=== PATIENT | female | born 1955 | race Caucasian/White ===

== ENCOUNTER 2018-09-17 09:57 | Inpatient (IN) | payer OTHER ==
[~2018-09-17] VITALS: Ht 162.6 cm; Wt 96.8 kg
--- NOTE | ~2018-09-17 | CON ---
[address] [address] CONSULTATION Name: BETH ALVARENGA Room: [address]#: [id number] Admission: 09/17/18 Attend Phys: Sylwia Carrillo Discharge: 09/18/18 Date of : 57 Report #: [id number] THIS REPORT FOR: //name// CC: Sloan Marshall DATE OF SERVICE: 09/17/2018 HISTORY OF PRESENT ILLNESS: The patient is a 62-year-old female who presents with vertigo. The patient states that the vertigo began this morning when she woke up. She has never had vertigo before and the room is spinning and she has to sit with her eyes closed for it to go away. The vertigo occurs whether she turns to her right or left. With this, she has also had nausea and vomiting. The patient states that she does have a history of ear surgery. This ear surgery was performed, two of the ear surgeries, by Dr. Lang Peralta, who has retired. PAST MEDICAL HISTORY: Hypertension, diabetes, interstitial cystitis. PAST SURGICAL HISTORY: Three ear surgeries. MEDICATIONS: Metformin 500 mg daily, enalapril 2.5 mg b.i.d., Elmiron 100 mg t.i.d., vitamin D 1000 units daily. ALLERGIES: MORPHINE. VITAL SIGNS: Temperature 36.3, pulse rate 72, respiratory rate 13, blood pressure 108/59, bedside pulse oximetry 97% on room air. LABORATORY DATA: Hematology: White blood cell count 11.3, hemoglobin 15.3, hematocrit 43.9, MCV 89.3, platelet count 335,000. Urinalysis: 2+ protein, 2+ blood. Chemistry: Sodium 139, potassium 3.8, chloride 101, carbon dioxide 26, BUN 16, creatinine 1, glucose 121. Liver functions normal. Drug screen not done. IMAGING: CT scan of the head shows atrophy. NEUROLOGIC: Cranial nerves 2-12 are grossly intact. The patient has bilateral horizontal nystagmus. Motor exam is symmetrical in all 4 extremities. Tone and bulk normal. Reflexes plantar. Coordination reveals intact [id number]. Gait was not tested. IMPRESSION: This patient has vertigo. This is most likely secondary to peripheral vestibular dysfunction. I will ask physical therapy to perform an Philippe maneuver tomorrow morning. After the Philippe maneuver, the patient should not tilt her head forward and should sleep in a more [place] [address] CONSULTATION Name: BETH ALVARENGA Room: [address]#: [id number] Admission: 09/17/18 Attend Phys: Sylwia Carrillo Discharge: 09/18/18 Date of : 57 Report #: [id number] does not help or the vertigo is not resolved by morning, the patient may need outpatient vestibular testing. I thank you for your kind referral of the patient. We will continue to follow her with you. By: 1837 [id number] Conklin DO /rosalva
[2018-09-17 10:06] VITALS: BP 134/90
[2018-09-17] MEDS ORDERED: METFORMIN HCL500 MG PO (10:12)
[2018-09-17 10:14] LABS: URINE BILIRUBIN NEGATIVE (Negative); URINE BLOOD 2+ (Negative); URINE CLARITY CLEAR; URINE COLOR YELLOW; URINE GLUCOSE-RANDOM NEGATIVE (Negative); URINE KETONES NEGATIVE (Negative); URINE LEUKOCYTES-REFLEX NEGATIVE (Negative); URINE NITRITE-REFLEX NEGATIVE (Negative); URINE PROTEIN 2+ (Negative); URINE SPECIFIC GRAVITY 1.025 (1.005-1.030); URINE UROBILINOGEN 0.2 E.U./dl (0.2-1.0)
[2018-09-17] MEDS ORDERED: VASOTEC 2.5MG2.5 MG PO (10:19)
[2018-09-17 10:21] LABS: BACTERIA-REFLEX 1-9 Few /HPF (None Seen); COARSE GRANULAR CASTS 0-3 Few /LPF (None Seen); HYALINE CASTS 0-3 Few /LPF (None Seen); MUCUS 0-3 Light strn/LPF (None Seen); SQUAMOUS 4-10 Moderate /LPF (0-3); URINE RBC 3-10 Few /HPF (0-2); URINE WBC-REFLEX 0-5 Rare /HPF (0-5)
[2018-09-17 10:22] LABS: CRYSTALS None Seen /LPF (None Seen)
[2018-09-17 10:30] LABS: ABSOLUTE BASOPHILS 0.1 thou/uL (0.0-0.2); ABSOLUTE EOSINOPHILS 0.1 thou/uL (0.0-0.7); ABSOLUTE LYMPHOCYTES 3.4 thou/uL (0.8-5.3); ABSOLUTE MONOCYTES 0.7 thou/uL (0.0-1.2); BASOPHILS 0.8 %; HEMATOCRIT 43.9 % (37.0-47.0); HEMOGLOBIN 15.3 gm/dL (12.0-15.0); LYMPHOCYTES 30.4 %; MCH 31.1 pg (26.0-34.0); MCHC 34.8 g/dL (28.0-37.0); MCV 89.3 fL (80.0-100.0); MONOCYTES 6.1 %; MPV 8.8 fl. (7.2-11.1); NUCLEATED RBCS 0 /100WBC; PLATELET COUNT* 335 thou/uL (150-400); POLYS 61.7 %; RBC 4.92 mil/uL (4.20-5.00); RDW-CV 13.7 % (10.5-14.5); WBC 11.3 thou/uL (4.0-11.0)
[2018-09-17 10:54] LABS: ANION GAP 12 mmol/L (7-16); BUN 16 mg/dL (7-18); CALCIUM 9.4 mg/dL (8.5-10.1); CHLORIDE 101 mmol/L (98-107); CO2 26 mmol/L (21-32); GLUCOSE 121 mg/dL (70-99); POTASSIUM 3.8 mmol/L (3.5-5.1); SODIUM 139 mmol/L (136-145)
[2018-09-17 11:02] LABS: ALBUMIN 3.4 g/dL (3.4-5.0); ALKALINE PHOSPHATASE 57 U/L (46-116); SGOT 17 U/L (15-37); SGPT 31 U/L (30-65); TOTAL BILIRUBIN 0.4 mg/dL (<0.1-1.0); TOTAL PROTEIN 7.6 g/dL (6.4-8.2); TROPONIN-I LEVEL <0.06 ng/mL (<0.06)
[2018-09-17 14:07] VITALS: BP 108/59
[2018-09-17] MEDS ORDERED: ELMIRON 100 MG100 M1 PO (14:33)
[2018-09-17] MEDS ORDERED: VITAMIN D1000 UNI1 PO (14:34)
[2018-09-17] MEDS ORDERED: DIOVAN HCT 1601 EACH PO (15:41)
[2018-09-17] MEDS ORDERED: VASOTEC10 MG PO (15:43)
[2018-09-17] MEDS ORDERED: ENALAPRIL MALEA20 MG PO (15:45)
--- NOTE | 2018-09-17 16:11 | EKG ---
[place] [address] ELECTROCARDIOGRAM REPORT Name: ZOLTANMERCEDESBETH Eddie Room: [address] ADM IN [facility].#: [id number] Admission: 09/17/18 Attend Phys: Sylwia Carrillo Discharge: Date of : 57 Report #: [id number] THIS REPORT FOR: //name// [facility] ED Test Date: 2018-09-17 Test Time: 10:24:07 Pat Name: BETH ALVARENGA Department: Room: [facility] Gender: F Lens Cutter: Murray EDGE : 1955 Requested By: Alberta Lam Order Number: [id number] MD: Elias Hebert Measurements Intervals [place] Rate: 74 P: 26 ID: 170 QRS: -22 QRSD: 105 T: 1 QT: 431 QTc: 479 Interpretive Statements Sinus rhythm Borderline left axis deviation No previous ECG available for comparison Electronically Signed On 09-17-2018 16:11:06 CDT by Elias Hebert [email or web address] <ELECTRONICALLY SIGNED> By: Elias Hebert MD, [facility] 09/17/18 1611 1024 1024 Elias Hebert MD, FAC /EPI
--- NOTE | 2018-09-17 17:10 | 2DMMODE ---
[place] [address] 2 D/M-MODE ECHOCARDIOGRAM Name: BETH ALVARENGA Room: [address] IN [facility]#: [id number] Admission: 09/17/18 Attend Phys: Lennox Marshall Discharge: Date of : 57 Date of Service: 09/17/18 1709 Report #: [id number] THIS REPORT FOR: //name// APPROVED REPORT Study performed: 09/17/2018 16:13:48 EXAM: Comprehensive 2D, Doppler, and color-flow Echocardiogram Patient Location: In-Patient Room #: [facility] Status: routine BSA: 1.96 HR: 71 bpm BP: 108/59 mmHg Rhythm: NSR Other Information Study Quality: Good Indications AMS 2D Dimensions IVSd: 9.90 (7-11mm) LVOT Diam: 20.69 (18-24mm) LVDd: 48.10 mm PWd: 9.12 (7-11mm) Ascending Ao: 35.11 (22-36mm) LVDs: 28.40 (25-40mm) Aortic Root: 32.17 mm Volumes Left Atrial Volume (Systole) LA ESV Index: 30.10 mL/m2 Aortic Valve AoV Peak Deshawn.: 1.47 m/s AO Peak Gr.: 8.68 mmHg LVOT Max P.93 mmHg AO Mean Gr.: 4.67 mmHg LVOT Mean P.53 mmHg LVOT Max V: 1.22 m/s AO V2 VTI: 28.30 cm LVOT Mean V: 0.72 m/s MAAME (VTI): 3.06 cm2 LVOT V1 VTI: 25.79 cm Mitral Valve E/A Ratio: 1.13 MV Decel. Time: 184.40 ms MV E Max Deshawn.: 0.92 m/[place] [address] 2 D/M-MODE ECHOCARDIOGRAM Name: BETH ALVARENGA Room: [address] IN [facility]#: [id number] Admission: 09/17/18 Attend Phys: Lennox Marshall Discharge: Date of : 57 Date of Service: 09/17/18 1709 Report #: [id number] MV PHT: 53.48 ms MVA (PHT): 4.11 cm2 TDI E/Lateral E': 8.36 E/Medial E': 10.22 Medial E' Deshawn.: 0.09 m/s Lateral E' Deshawn.: 0.11 m/s Pulmonary Valve PV Peak Deshawn.: 0.86 m/s PV Peak Gr.: 2.93 mmHg Left Ventricle The left ventricle is normal size. There is normal LV segmental wall motion. There is normal left ventricular wall thickness. Left ventricular systolic function is normal. The left ventricular ejection fraction is within the normal range. LVEF is 60-65%. The left ventricular diastolic function is normal. Right Ventricle The right ventricle is normal size. The right ventricular systolic function is normal. Atria Left atrium is mildly dilated. The right atrium size is normal. Aortic Valve The aortic valve is normal in structure. No aortic regurgitation is present. There is no aortic valvular stenosis. Mitral Valve The mitral valve is normal in structure. Trace mitral regurgitation. No evidence of mitral valve stenosis. Tricuspid Valve The tricuspid valve is normal in structure. Unable to assess PA pressure. Trace tricuspid regurgitation. Pulmonic Valve The pulmonary valve is normal in structure. Trace pulmonic regurgitation. Great Vessels The aortic root is normal in size. IVC is normal in size and collapses >50% [place] [address] 2 D/M-MODE ECHOCARDIOGRAM Name: BETH ALVARENGA Room: [address]#: [id number] Admission: 09/17/18 Attend Phys: Lennox Marshall Discharge: Date of : 57 Date of Service: 09/17/18 1709 Report #: [id number] Pericardium There is no pericardial effusion. <Conclusion> Left atrium is mildly dilated. LVEF is 60-65%. <ELECTRONICALLY SIGNED> By: Elias Hebert MD, [facility] 09/17/181708 08 08 Elias Hebert MD, [facility] /INF
[2018-09-17 19:04] LABS: AMP/METHAMP Negative (Negative); BARBITURATES Negative (Negative); BENZODIAZEPINES Negative (Negative); COCAINE Negative (Negative); METHADONE Negative (Negative); OPIATES Negative (Negative); PCP Negative (Negative); THC Negative (Negative)
[2018-09-17 19:50] VITALS: BP 100/46
[2018-09-18] VITALS: BP 85/50
[2018-09-18 00:35] VITALS: BP 101/58
[2018-09-18 04:00] VITALS: BP 98/54
[2018-09-18 07:30] VITALS: BP 101/55
[2018-09-18] MEDS ORDERED: ADULT LOW DOSE81 MG PO (11:57)
[2018-09-18] MEDS ORDERED: KEFLEX500 M1 PO (11:57)
[2018-09-18] MEDS ORDERED: ANTIVERT25 MG PO (11:57)
[2018-09-18] MEDS ORDERED: LIPITOR 10 MG10 M1 PO (11:57)
[2018-09-18 12:40] VITALS: BP 104/55
[2018-09-18 13:40] LABS: CHOLESTEROL 204 mg/dL (<200); HDL CHOLESTEROL 25 mg/dL (>40); LDL CHOLESTEROL 106 mg/dL (<100); SERUM ASSESSMENT CLEAR; TC:HDL 8.2 Ratio (Not establshd); TRIGLYCERIDE 369 mg/dL (<150); VLDL 74 mg/dL (<40)
[2018-09-18 13:44] VITALS: BP 104/55
== END 2018-09-18 15:06 | disposition home or self-care (01) | DRG 178 ==
LOC: M.ERS 09:57 → M.2W 12:44 → M.TBA-ER 12:44 → M.2W 14:25
PROVIDERS: Physician Assistant; ADMIT Internal Medicine
DX: J15.6 Pneumonia due to other Gram-negative bacteria (principal); J98.11 Atelectasis; N39.0 Urinary tract infection, site not specified; I10 Essential (primary) hypertension; F17.200 Nicotine dependence, unspecified, uncomplicated; E11.9 Type 2 diabetes mellitus without complications; Z88.6 Allergy status to analgesic agent; Z79.84 Long term (current) use of oral hypoglycemic drugs; Z79.899 Other long term (current) drug therapy; Z71.6 Tobacco abuse counseling

== ENCOUNTER → 2021-03-21 | Outpatient (CLI) | payer BC ==
[~2021-03-21] MED LIST: ADULT LOW DOSE81 MG PO; ANTIVERT25 MG PO; DIOVAN HCT 1601 EACH PO; ELMIRON 100 MG100 M1 PO; ENALAPRIL MALEA20 MG PO; KEFLEX500 M1 PO; LIPITOR 10 MG10 M1 PO; METFORMIN HCL500 MG PO; VASOTEC 2.5MG2.5 MG PO; VASOTEC10 MG PO; VITAMIN D1000 UNI1 PO
--- NOTE | 2021-03-26 14:08 | PATH ---
[address] [address] PATHOLOGY RPT PROCEDURE Name: LYLESWAPNA CAT Room: [facility] ORESTES Sommer#: [id number] Admission: 03/21/21 Date of : 57 Discharge: Report #: [id number] Path Case #: [id number] [facility] Accession Number: [id number] . 01 Material submitted: . breast - LEFT BREAST TISSUE. Modifiers: left . 01 Clinical history: . LEFT BREAST MASS . 02 Diagnosis: Left breast mass/tissue, image-guided biopsy: - Fibroepithelial lesion, favor benign Phyllodes tumor. See comment. (KAYLI:tony; 03/22/2021) QMS 03/22/2021 1149 Local . 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 . Reviewed with Dr. Andrea Singh on 03/25/2021, who agrees with the diagnosis. Deb Devine ([facility] Breast Navigator), notified at approximately 1435 on 03/25/2021. (KAYLI:[facility]; 03/22/2021) . 02 Electronically signed: . Freddie Montgomery MD, Pathologist NPI- [id number] . 01 Gross description: . The specimen is received in formalin, labeled "Swapna Goodson, left breast". Received are multiple needle core fragments of fibrofatty tissue ranging in size from 0.2-0.6 cm in maximum dimensions. The specimen is submitted entirely in cassettes A1. The specimen is collected at 1010 and placed into formalin at 1023 on 03/21/2021. The specimen is removed from formalin at 2230 on 03/21/2021. The total formalin fixation time is 12 hours and 7 minutes. ([facility]; 03/21/2021) NRI/NRI 03/22/2021 1141 Local . 02 Pathologist provided ICD-10: N64.89 . 02 CPT . [id number] [place] [address] PATHOLOGY RPT PROCEDURE Name: SWAPNA GOODSON Room: [facility].#: [id number] Admission: 03/21/21 Date of : 57 Discharge: Report #: [id number] Path Case #: [id number] Specimen Comment: A courtesy copy of this report has been sent to [phone], [phone] Specimen Comment: [id number] Specimen Comment: Report sent to / DR OBREGON Specimen Comment: A duplicate report has been generated due to demographic updates. Performed at: [address], [place], [place] [id number] MD Shai Yoder MD Phone: [phone] Performed at: 02 [facility] [address], [place], [place] [id number] MD Freddie Montgomery MD Phone: [phone]
== END | disposition home or self-care (01) ==
LOC: M.ULTRA 08:15
PROVIDERS: ATTEND Surgery
DX: N64.89 Other specified disorders of breast (principal); R92.1 Mammographic calcification found on diagnostic imaging of breast; I10 Essential (primary) hypertension; E11.9 Type 2 diabetes mellitus without complications; Z98.890 Other specified postprocedural states; Z79.899 Other long term (current) drug therapy; Z88.8 Allergy status to other drugs, medicaments and biological substances